=== PATIENT | male | born 1965 | race African-American/Black ===

== ENCOUNTER 2017-01-15 05:44 | Day surgery (SDC) | payer BC ==
[2017-01-14 14:31] LABS: HEMATOCRIT 43.6 % (42.0-54.0); HEMOGLOBIN 15.3 g/dL (13.5-17.5); MCH 31.9 pg (26.0-34.0); MCHC 35.1 g/dL (31.0-37.0); RBC 4.79 10x6/uL (4.20-6.10); RDW 12.5 % (11.5-14.5)
[2017-01-14 14:56] LABS: ANION GAP 12.6 mmol/L (8-16); CALCIUM 9.1 mg/dL (8.5-10.1); CARBON DIOXIDE 28.1 mmol/L (21.0-32.0); CREATININE - SERUM 1.2 mg/dL (0.6-1.3); POTASSIUM - SERUM 3.7 mmol/L (3.5-5.1)
[~2017-01-15] VITALS: Ht 195.6 cm; Wt 103.9 kg
[~2017-01-15 05:44] MED LIST: BACTRIM DS TABL1 TAB PO; COZAAR50 MG PO; HYZAAR 50-12.51 TAB PO; OMEPRAZOLE20 M1 PO
[2017-01-15 07:32] VITALS: BP 128/78; Ht 195.6 cm; Wt 103.9 kg
--- NOTE | 2017-01-15 17:32 | NUR ---
1540- PT BACK TO ROOM FULLY AWAKE WITH HOB ELEVATED. LIQUIDS OFFERED. 1600- IV D/C'D, PT TOLERATED. CATHETER INTACT. 1615- DISCHARGE INSTRUCTIONS COMPLETED, PT VERBALIZED UNDERSTANDING. PAPERWORK SIGNED. 1620- PT DISCHARGED VIA AMBULATION AND NURSE WITH .
== END 2017-01-15 16:20 | disposition home or self-care (01) ==
LOC: D.OPS 05:44 → D.PAN 08:45 → D.OPS 08:45 → D.PAN 11:30 → D.OPS 11:30 → D.PAN 12:00 → D.OPS 16:20
PROVIDERS: Anesthesiology
DX: C61 Malignant neoplasm of prostate (principal); Z80.42 Family history of malignant neoplasm of prostate; Z79.2 Long term (current) use of antibiotics; Z01.812 Encounter for preprocedural laboratory examination

== ENCOUNTER → 2017-01-29 09:31 | Outpatient (CLI) | payer BC, OTHER ==
[2017-01-15 07:32] VITALS: BMI 27.2
== END | disposition home or self-care (01) ==
LOC: D.NM 09:31
DX: C61 Malignant neoplasm of prostate (principal)